=== PATIENT | male | born 2000 | race African-American/Black ===

== ENCOUNTER 2018-06-03 14:04 | Inpatient (IN) | payer BC, MEDICAID, OTHER ==
[~2018-06-03] VITALS: Ht 172.7 cm; Wt 74.2 kg
[~2018-06-03 14:04] MED LIST: HYDR-3498 PO
[2018-06-03 16:39] VITALS: PULSE 77
[2018-06-03 16:41] VITALS: Ht 172.7 cm; Wt 74.2 kg
[2018-06-03 16:45] VITALS: BP 133/69; PULSE 71; RESP 20
[2018-06-03] MEDS ORDERED: ALBUTEROL/IPRATROPIUM (NEB) 3 ML AMP HHN PRN (18:00)
[2018-06-03] MEDS ORDERED: NACL 0.9% 3 ML SYG IV SCH (18:00)
[2018-06-03] MEDS ORDERED: LORAZEPAM 2 MG INJ IV PRN (18:00)
[2018-06-03] MEDS ORDERED: MAGNESIUM HYDROXIDE 30ML CUP PO PRN (18:00)
[2018-06-03] MEDS ORDERED: DOCUSATE SODIUM 100 MG CAP PO PRN (18:00)
[2018-06-03] MEDS ORDERED: ACETAMINOPHEN 325 MG TAB PO PRN (18:00)
[2018-06-03] MEDS ORDERED: ONDANSETRON 4 MG INJ IV PRN (18:00)
[2018-06-03] MEDS ORDERED: hydrALAzine 20 MG INJ IV PRN (18:00)
[2018-06-03] MEDS ORDERED: NITROGLYCERIN (SL) 0.4 MG TAB SL PRN (18:00)
[2018-06-03] MEDS: SOD CHLORIDE 0.9% 1,000 ML IV SCH (18:27)
[2018-06-03] MEDS: PIPER-TAZO 3.375 GM IV (PMX) 100 ML IVPB SCH (18:28)
--- NOTE | 2018-06-03 20:08 | HP ---
DATE OF ADMISSION: 06/03/2018 IDENTIFICATION: This is a 17-year-old male. CHIEF COMPLAINT: Seizure activity after smoking weed, pneumonia. HISTORY OF PRESENT ILLNESS: A 17-year-old male transferred from [facility] earlier today. He was wi th his friends smoking weed through a bong. He says he got up and felt dizzy and lightheaded and bel ieves he passed out. The next thing he remembered was he was in the back of an ambulance. Per recor ds, apparently he was shaking and had what looks like possible seizure activity lasting 30 to 40 seco nds. He did bite his tongue. No bowel or bladder incontinence. No prior history of any seizures be fore. He was also complaining of shortness of breath, cough when he arrived to the outside hospital ER. He had a CT chest performed that showed bilateral infiltrates signs of pneumonia. He also had s ome mild hemoptysis as well. He was given antibiotics and IV fluids there. He was also hypoxic. O2 sat in the 93% to 94% range on 2 to 4 liters nasal cannula. He was transferred over here due to ins urance purposes. PAST MEDICAL HISTORY: As stated above. ALLERGIES: NO KNOWN DRUG ALLERGIES. MEDICATIONS: None on file. PAST SURGICAL HISTORY: He has had left knee surgery x2 in the past. SOCIAL HISTORY: Smokes weed 4 to 5 times a week for the last 3 years. Denies any other cigarette sm oking history or any other drug use and denies any alcohol use. PHYSICAL EXAMINATION: VITAL SIGNS: T-max 97.8, pulse 93, respirations 20, blood pressure 151/88, satting at 92% on 2 liter s nasal cannula. GENERAL: The patient is lying in bed, family members at the bedside. He is more awake and alert. HEENT: Pupils equal, round, reactive to light. There is redness noted in the conjunctiva bilateral eyes, on the lateral side. The conjunctiva otherwise reactive. NECK: Supple, no thyromegaly. LUNGS: Slightly distant breath sounds bilaterally, no wheezes. CARDIOVASCULAR: S1, S2 heard. No rubs or gallops. ABDOMEN: Soft, nontender, nondistended. Normal bowel sounds. No rebound or guarding. MUSCULOSKELETAL: No lower extremity edema bilaterally. NEUROLOGIC: No focal deficits. LABORATORIES: Blood alcohol level was normal. WBC 16.8, hematocrit is 50.4, unknown hemoglobin, unknown platelet count. Sodium is 135, chloride 95 , CO2 of 12, glucose 231, creatinine 1.34. Again, his CT chest at the outside hospital showed patchy bilateral infiltrates, left lower and lingula, right upper lobe, superior segment of the right lower lobe as well. ASSESSMENT AND PLAN: 1. A 17-year-old male with seizure activity after smoking marijuana earlier today along with bilater al pneumonias. 2. Seizure activity. Again, apparently occurred after using weed earlier today. No prior history o f any seizures. He did have tongue biting. He is also having hemoptysis which may be related to his pneumonia. In any event, the patient do neuro checks every 4 hours. Ativan 1 mg q.1 hour p.r.n. se izure activity. We will add Keppra IV. Get neurology consult. Order EEG. Follow up TSH, A1c, lipi d panel. 3. Bilateral pneumonia. Continue oxygen supplementation. Continue broad spectrum antibiotics. Fol low up final culture results. Tylenol p.r.n. pain and fevers. Low dose IV fluids. 4. History of weed use. Monitor for signs of withdrawal. Wool Carder on smoking cessation. Dictated By: KARINA GALLEGOS Conf#: [id number] DID#: [id number]
[2018-06-03 20:22] VITALS: PULSE 69
[2018-06-03] MEDS ORDERED: HEPARIN 5,000 UNIT/1 ML VIAL SC SCH (21:00)
[2018-06-03] MEDS: LEVETIRACETAM 1000 MG (PMX) 100 ML IVPB SCH (21:16)
[2018-06-03] MEDS: morphine 2 MG INJ IV PRN (21:16)
[2018-06-03 22:05] VITALS: BP 122/67; PULSE 69; RESP 18
[2018-06-04] VITALS (13 sets, daily range): BP systolic 112–129; BP diastolic 55–71; PULSE 58–85; RESP 18–20
[2018-06-04] MEDS: PIPER-TAZO 3.375 GM IV (PMX) 100 ML IVPB SCH ×5 (00:17→23:18)
[2018-06-04] MEDS: SOD CHLORIDE 0.9% 1,000 ML IV SCH ×4 (03:51→23:19)
[2018-06-04] MEDS: PANTOPRAZOLE (EC) 40 MG TAB PO SCH (05:46)
[2018-06-04] MEDS: LEVETIRACETAM 1000 MG (PMX) 100 ML IVPB SCH (09:46)
--- NOTE | 2018-06-04 11:12 | CONS ---
Assessment/Plan Assessment/Plan Hospital Course 17 M c/ reported Hx of migraines and frequent marijuana use, who presents following a witnessed seizure...his first of life.. It is possible that he suffered head trauma in the midst of a syncopal episode, which may have provoked a seizure.. He had severe tongue biting during the episode, which likely accounts for his presumed aspiration pneumonia.. He is, thus, likely to expectorate blood in the coming days... OSH Head CT is reportedly unremarkable. Mag, Phos, Ca, Na, Gluc wnl... P: Add MRI brain w/ and w/o contrast for further characterization Await EEG to evaluate for epileptiform activity Hold Hasmukh for now, pending the above Ativan iv prn prolonged seizure or cluster Continued medical management and supportive care per primary Will follow clinically Consultation Date/Type/Reason Admit Date/Time Jun 03, 2018 at 16:27 Type of Consult Neurology Reason for Consultation seizure Requesting Provider: KARINA POTTS Date/Time of Note DATE: 06/04/18 TIME: 11:03 Hx of Present Illness 17 M w/ possible migraines, who presents for evaluation following a witnessed seizure...his reported first of life.. He was smoking marijuana, when he got up quickly to spit.. He noted feeling dizzy....then passed out. Bystanders heard a thump....then located him to find him generally convulsing...which prompted his presentation.. No Hx of febrile seizures, meningitis, or prior significant head trauma. No fam Hx of epilepsy.. No use of amphetamines or recent cessation or ETOH or benzos.. Notes chest pain now...but is without acute neurologic Sx currently.. 12 PT ROS ow neg Exam/Review of Systems Exam Vitals Vital Signs Date Temp Pulse Resp B/P (MAP) Pulse Ox O2 O2 Flow FiO2 Time Delivery Rate 06/04/18 72 08:20 06/04/18 98.2 20 115/67 99 08:18 (83) 06/04/18 Room Air 05:49 06/04/18 2.0 03:41 Intake and Output 06/03/18 06/03/18 06/04/18 1515:00 23:00 07:00 IntakeIntake Total 350 ml 1650 ml BalanceBalance 350 ml 1650 ml Exam PE: Gen Appearance: No Apparent Distress HEENT: Normocephalic Cardiovascular: Regular rate Lungs: Clear bilaterally Abdomen: Soft Extremities: Dry NE: The patient was alert and oriented, able to spell WORLD backwards, and able to recall all three words after a five minute delay. Language was normal. Fund of knowledge was normal. Pupils were equal and reactive to light. There was no afferent pupillary defect. Visual wright were normal. Funduscopic examination showed sharp disc margins and spontaneous venous pulsations. Extra-ocular movements were full. Ptosis was absent. There was no nystagmus. Facial sensation was normal. Face was symmetric with normal strength. Hearing was intact. Palate movements were normal. Neck strength was normal. There was normal tongue bulk and speed of movement. Tone was normal. Muscle bulk was normal. I did not see fasciculations. Arms and legs were strong. Vibration sensation was normal. Temperature and pinprick sensation was normal. Rapid alternating movements were normal. There was no dysmetria. There was no intention tremor. Gait was deferred due to bedrest. Arm and leg reflexes were 2+ and symmetric. Oleary's sign was absent. Plantar responses were flexor. Results Result Diagram: 06/04/18 1019 06/04/18 1019 Results 24hrs Laboratory Tests Test 06/03/18 18:05 06/04/18 10:19 Free Thyroxine 0.98 White Blood Count 10.8 Red Blood Count 4.30 L Hemoglobin 12.9 L Hematocrit 38.9 L Mean Corpuscular Volume 90.5 Mean Corpuscular Hemoglobin 30.0 Mean Corpuscular Hemoglobin Concent 33.2 Red Cell Distribution Width 13.3 Platelet Count 185 Mean Platelet Volume 10.8 H Immature Granulocytes % 0.400 Neutrophils % 73.0 Lymphocytes % 16.1 L Monocytes % 9.3 Eosinophils % 0.9 Basophils % 0.3 Nucleated Red Blood Cells % 0.0 Immature Granulocytes # 0.040 H Neutrophils # 7.9 H Lymphocytes # 1.7 Monocytes # 1.0 H Eosinophils # 0.1 Basophils # 0.0 Nucleated Red Blood Cells # 0.0 Sodium Level 141 Potassium Level 4.2 Chloride Level 111 H Carbon Dioxide Level 23 Anion Gap 7 Blood Urea Nitrogen 11 Creatinine 1.41 H Est Glomerular Filtrat Rate mL/min > 60 Glucose Level 84 Hemoglobin A1c 5.4 Calcium Level 9.1 Phosphorus Level 2.9 Magnesium Level 2.3 Triglycerides Level 89 Cholesterol Level 119 LDL Cholesterol, Calculated 66 HDL Cholesterol 35 Cholesterol/HDL Ratio 3.4 Thyroid Stimulating Hormone (TSH) Pending Medications Medication Current Medications IV Flush (NS 3 ml) 3 ml PER PROTOCOL IV ; Start 06/03/18 at 18:00 Ondansetron HCl (Zofran Inj) 4 mg Q6H PRN IV NAUSEA/VOMITING; Start 06/03/18 at 18:00 Acetaminophen (Tylenol Tab) 650 mg Q6H PRN PO .PAIN 1-3 OR TEMP; Start 06/03/18 at 18:00 Acetaminophen/ Hydrocodone Bitart ([place] (5/325)) 1 tab Q6H PRN PO .MOD PAIN 4- 6; Start 06/03/18 at 18:00 Morphine Sulfate (morphine) 2 mg Q4H PRN IV .SEVERE PAIN 7-10 Last administered on 06/03/18at 21:16; Admin Dose 2 MG; Start 06/03/18 at 18:00 Docusate Sodium (Colace) 100 mg Q12H PRN PO .CONSTIPATION; Start 06/03/18 at 18:00 Magnesium Hydroxide (Milk Of Mag) 30 ml DAILY PRN PO .CONSTIPATION; Start 06/03/18 at 18:00 Pantoprazole (Protonix Tab) 40 mg DAILY@06 PO Last administered on 06/04/18at 05:46; Admin Dose 40 MG; Start 06/04/18 at 06:00 Lorazepam (Ativan) 1 mg Q2H PRN IV SEIZURES; Start 06/03/18 at 18:00 Sodium Chloride 1,000 ml @ 100 mls/hr Q10H IV Last administered on 06/04/18at 07:06; Admin Dose 100 MLS/HR; Start 06/03/18 at 17:51 Albuterol/ Ipratropium (Duoneb) 3 ml Q4H RESP THERAPY PRN HHN SHORTNESS OF BREATH; Start 06/03/18 at 18:00 Piperacillin Sod/ Tazobactam Sod 100 ml @ 200 mls/hr Q6 IVPB Last administered on 06/04/18at 05:46; Admin Dose 200 MLS/HR; Start 06/03/18 at 18:00 Hydralazine HCl (Apresoline) 10 mg Q6H PRN IV ELEVATED BLOOD PRESSURE; Start 06/03/18 at 18:00 Clonidine (Catapres) 0.1 mg Q6H PRN PO ELEVATED BLOOD PRESSURE; Start 06/03/18 at 18:00 Nitroglycerin (Nitroglycerin (Sl Tab) 0.4 Mg) 1 tab Q5M PRN SL ANGINA; Start 06/03/18 at 18:00 Levetiracetam 100 ml @ 400 mls/hr Q12 IVPB Last administered on 06/04/18at 09:46; Admin Dose 400 MLS/HR; Start 06/03/18 at 21:00 Past Medical History reviewed Home Meds Reported Medications Hydrocodone Bit-Acetaminophen* ([place]*) 5-325 Mg Tab, 1 TAB PO Q4H PRN for PAIN, TAB 04/09/15 Medications Current Medications IV Flush (NS 3 ml) 3 ml PER PROTOCOL IV ; Start 06/03/18 at 18:00 Ondansetron HCl (Zofran Inj) 4 mg Q6H PRN IV NAUSEA/VOMITING; Start 06/03/18 at 18:00 Acetaminophen (Tylenol Tab) 650 mg Q6H PRN PO .PAIN 1-3 OR TEMP; Start 06/03/18 at 18:00 Acetaminophen/ Hydrocodone Bitart ([place] (5/325)) 1 tab Q6H PRN PO .MOD PAIN 4- 6; Start 06/03/18 at 18:00 Morphine Sulfate (morphine) 2 mg Q4H PRN IV .SEVERE PAIN 7-10 Last administered on 06/03/18at 21:16; Admin Dose 2 MG; Start 06/03/18 at 18:00 Docusate Sodium (Colace) 100 mg Q12H PRN PO .CONSTIPATION; Start 06/03/18 at 18:00 Magnesium Hydroxide (Milk Of Mag) 30 ml DAILY PRN PO .CONSTIPATION; Start 06/03/18 at 18:00 Pantoprazole (Protonix Tab) 40 mg DAILY@06 PO Last administered on 06/04/18at 05:46; Admin Dose 40 MG; Start 06/04/18 at 06:00 Lorazepam (Ativan) 1 mg Q2H PRN IV SEIZURES; Start 06/03/18 at 18:00 Sodium Chloride 1,000 ml @ 100 mls/hr Q10H IV Last administered on 06/04/18at 07:06; Admin Dose 100 MLS/HR; Start 06/03/18 at 17:51 Albuterol/ Ipratropium (Duoneb) 3 ml Q4H RESP THERAPY PRN HHN SHORTNESS OF BREATH; Start 06/03/18 at 18:00 Piperacillin Sod/ Tazobactam Sod 100 ml @ 200 mls/hr Q6 IVPB Last administered on 06/04/18at 05:46; Admin Dose 200 MLS/HR; Start 06/03/18 at 18:00 Hydralazine HCl (Apresoline) 10 mg Q6H PRN IV ELEVATED BLOOD PRESSURE; Start 06/03/18 at 18:00 Clonidine (Catapres) 0.1 mg Q6H PRN PO ELEVATED BLOOD PRESSURE; Start 06/03/18 at 18:00 Nitroglycerin (Nitroglycerin (Sl Tab) 0.4 Mg) 1 tab Q5M PRN SL ANGINA; Start 06/03/18 at 18:00 Levetiracetam 100 ml @ 400 mls/hr Q12 IVPB Last administered on 06/04/18at 09:46; Admin Dose 400 MLS/HR; Start 06/03/18 at 21:00 Allergies: Coded Allergies: No Known Allergy (Unverified , 04/08/15) Past Surgical History reviewed Social History Smoking Status: Current every day smoker EDSON KLINE Jun 04, 2018 11:12
[2018-06-04] MEDS: morphine 2 MG INJ IV PRN ×2 (11:47→21:17)
--- NOTE | 2018-06-04 11:52 | PN ---
Date/Time of Note Date/Time of Note DATE: 06/04/18 TIME: 11:48 Assessment/Plan VTE Prophylaxis Risk score (from Nsg)>0 risk: 1 SCD applied (from Nsg): Yes Pharmacological prophylaxis: other Assessment/Plan Hospital Course S: Seen by neurology team earlier today. No seizure activity overnight, awaiting further brain imaging studies. O: VS - see below PHYSICAL EXAMINATION: GENERAL: lying in bed, NAD HEENT: Pupils equal, round, reactive to light. There is redness noted in the conjunctiva bilateral eyes, on the lateral sides. The conjunctiva otherwise reactive. NECK: Supple, no thyromegaly. LUNGS: Slightly distant breath sounds bilaterally, no wheezes. CARDIOVASCULAR: S1, S2 heard. No rubs or gallops. ABDOMEN: Soft, nontender, nondistended. Normal bowel sounds. No rebound or guarding. MUSCULOSKELETAL: No lower extremity edema bilaterally. NEUROLOGIC: No focal deficits. ASSESSMENT AND PLAN: 17-year-old male with seizure activity after smoking marijuana along with possible bilateral pneumonia. # Seizure activity. Again, apparently occurred after using weed prior to admission. Neurology team stated patient may have had head trauma which triggered the seizure? No prior history of any seizures. He did have tongue biting. He is also having hemoptysis which may be related to his pneumonia versus the tongue biting? - continue neuro checks every 4 hours. Ativan 1 mg q.1 hour p.r.n. seizure activity. - follow-up MRI brain as ordered by eurology consult, and results of EEG. Follow up TSH, A1c, lipid panel. # Bilateral pneumonia. Less respiratory symptoms, white blood cell count is improving. - Continue oxygen supplementation. - Continue broad spectrum antibiotics. - Follow up final culture results. - Tylenol p.r.n. pain and fevers. - Low dose IV fluids. # History of weed use. - Monitor for signs of withdrawal. - Mva Still Operator on smoking cessation. Result Diagram: 06/04/18 1019 06/04/18 1019 Results 24hrs Laboratory Tests Test 06/03/18 18:05 06/04/18 10:19 Free Thyroxine 0.98 White Blood Count 10.8 Red Blood Count 4.30 L Hemoglobin 12.9 L Hematocrit 38.9 L Mean Corpuscular Volume 90.5 Mean Corpuscular Hemoglobin 30.0 Mean Corpuscular Hemoglobin Concent 33.2 Red Cell Distribution Width 13.3 Platelet Count 185 Mean Platelet Volume 10.8 H Immature Granulocytes % 0.400 Neutrophils % 73.0 Lymphocytes % 16.1 L Monocytes % 9.3 Eosinophils % 0.9 Basophils % 0.3 Nucleated Red Blood Cells % 0.0 Immature Granulocytes # 0.040 H Neutrophils # 7.9 H Lymphocytes # 1.7 Monocytes # 1.0 H Eosinophils # 0.1 Basophils # 0.0 Nucleated Red Blood Cells # 0.0 Sodium Level 141 Potassium Level 4.2 Chloride Level 111 H Carbon Dioxide Level 23 Anion Gap 7 Blood Urea Nitrogen 11 Creatinine 1.41 H Est Glomerular Filtrat Rate mL/min > 60 Glucose Level 84 Hemoglobin A1c 5.4 Calcium Level 9.1 Phosphorus Level 2.9 Magnesium Level 2.3 Triglycerides Level 89 Cholesterol Level 119 LDL Cholesterol, Calculated 66 HDL Cholesterol 35 Cholesterol/HDL Ratio 3.4 Thyroid Stimulating Hormone (TSH) Pending Exam/Review of Systems Exam Vitals Vital Signs Date Temp Pulse Resp B/P (MAP) Pulse Ox O2 O2 Flow FiO2 Time Delivery Rate 06/04/18 72 08:20 06/04/18 98.2 20 115/67 99 08:18 (83) 06/04/18 Room Air 05:49 06/04/18 2.0 03:41 Intake and Output 06/03/18 06/03/18 06/04/18 1515:00 23:00 07:00 IntakeIntake Total 350 ml 1650 ml BalanceBalance 350 ml 1650 ml Results Results 24hrs Laboratory Tests Test 06/03/18 18:05 06/04/18 10:19 Free Thyroxine 0.98 White Blood Count 10.8 Red Blood Count 4.30 L Hemoglobin 12.9 L Hematocrit 38.9 L Mean Corpuscular Volume 90.5 Mean Corpuscular Hemoglobin 30.0 Mean Corpuscular Hemoglobin Concent 33.2 Red Cell Distribution Width 13.3 Platelet Count 185 Mean Platelet Volume 10.8 H Immature Granulocytes % 0.400 Neutrophils % 73.0 Lymphocytes % 16.1 L Monocytes % 9.3 Eosinophils % 0.9 Basophils % 0.3 Nucleated Red Blood Cells % 0.0 Immature Granulocytes # 0.040 H Neutrophils # 7.9 H Lymphocytes # 1.7 Monocytes # 1.0 H Eosinophils # 0.1 Basophils # 0.0 Nucleated Red Blood Cells # 0.0 Sodium Level 141 Potassium Level 4.2 Chloride Level 111 H Carbon Dioxide Level 23 Anion Gap 7 Blood Urea Nitrogen 11 Creatinine 1.41 H Est Glomerular Filtrat Rate mL/min > 60 Glucose Level 84 Hemoglobin A1c 5.4 Calcium Level 9.1 Phosphorus Level 2.9 Magnesium Level 2.3 Triglycerides Level 89 Cholesterol Level 119 LDL Cholesterol, Calculated 66 HDL Cholesterol 35 Cholesterol/HDL Ratio 3.4 Thyroid Stimulating Hormone (TSH) Pending Medications Medication Current Medications IV Flush (NS 3 ml) 3 ml PER PROTOCOL IV ; Start 06/03/18 at 18:00 Ondansetron HCl (Zofran Inj) 4 mg Q6H PRN IV NAUSEA/VOMITING; Start 06/03/18 at 18:00 Acetaminophen (Tylenol Tab) 650 mg Q6H PRN PO .PAIN 1-3 OR TEMP; Start 06/03/18 at 18:00 Acetaminophen/ Hydrocodone Bitart ([place] (5/325)) 1 tab Q6H PRN PO .MOD PAIN 4- 6; Start 06/03/18 at 18:00 Morphine Sulfate (morphine) 2 mg Q4H PRN IV .SEVERE PAIN 7-10 Last administered on 06/03/18at 21:16; Admin Dose 2 MG; Start 06/03/18 at 18:00 Docusate Sodium (Colace) 100 mg Q12H PRN PO .CONSTIPATION; Start 06/03/18 at 18:00 Magnesium Hydroxide (Milk Of Mag) 30 ml DAILY PRN PO .CONSTIPATION; Start 06/03/18 at 18:00 Pantoprazole (Protonix Tab) 40 mg DAILY@06 PO Last administered on 06/04/18at 05:46; Admin Dose 40 MG; Start 06/04/18 at 06:00 Lorazepam (Ativan) 1 mg Q2H PRN IV SEIZURES; Start 06/03/18 at 18:00 Sodium Chloride 1,000 ml @ 100 mls/hr Q10H IV Last administered on 06/04/18at 07:06; Admin Dose 100 MLS/HR; Start 06/03/18 at 17:51 Albuterol/ Ipratropium (Duoneb) 3 ml Q4H RESP THERAPY PRN HHN SHORTNESS OF BR EATH; Start 06/03/18 at 18:00 Piperacillin Sod/ Tazobactam Sod 100 ml @ 200 mls/hr Q6 IVPB Last administered on 06/04/18at 05:46; Admin Dose 200 MLS/HR; Start 06/03/18 at 18:00 Hydralazine HCl (Apresoline) 10 mg Q6H PRN IV ELEVATED BLOOD PRESSURE; Start 06/03/18 at 18:00 Clonidine (Catapres) 0.1 mg Q6H PRN PO ELEVATED BLOOD PRESSURE; Start 06/03/18 at 18:00 Nitroglycerin (Nitroglycerin (Sl Tab) 0.4 Mg) 1 tab Q5M PRN SL ANGINA; Start 06/03/18 at 18:00 Phenol (Chloraseptic Throat Troup) 2 spray Q2H PRN MT SORE THROAT; Start 06/04/18 at 12:00 KARINA POTTS Jun 04, 2018 11:52
[2018-06-04] MEDS ORDERED: PHENOL 1.4% SOLN 180 ML BTL MT PRN (12:00)
[2018-06-04] MEDS: HYDROCODONE/APAP (5/325) TAB PO PRN (16:07)
[2018-06-05] VITALS (9 sets, daily range): BP systolic 109–121; BP diastolic 51–58; PULSE 52–71; RESP 19–20
[2018-06-05] MEDS: PIPER-TAZO 3.375 GM IV (PMX) 100 ML IVPB SCH ×3 (06:39→17:12)
[2018-06-05] MEDS: PANTOPRAZOLE (EC) 40 MG TAB PO SCH (06:39)
--- NOTE | 2018-06-05 06:51 | EEG ---
EEG NOTE Report Details DATE OF TEST: 06/04/18 HISTORY: The patient is a 17-year-old M who presents with seizure, his first of life. This EEG is requested to evaluate for an epileptic disorder. SEDATION: None. CONDITIONS OF RECORDING: This EEG was recorded digitally on the [employer] machine, using the International 10-20 System of electrodes plus anterior temporals and [place]. STATES SAMPLED: Wakefulness and drowsiness. FINDINGS: During wakefulness, there is a 10 Hz posterior dominant rhythm, which attenuates normally with eye opening. There is a normal [id number] frequency-amplitude gradient. The remainder of the awake background is normal. Photic stimulation does not elicit any definite driving responses or epileptiform discharges. Hyperventilation was not performed. The patient became drowsy but did not pass into sleep. No asymmetries, focal abnormalities or epileptiform discharges were seen. IMPRESSION: Normal electroencephalogram during wakefulness and drowsiness. COMMENT: A normal EEG does not of itself rule out an epileptic disorder, especially if sleep is not captured, but may decrease the probability of one depending on clinical context. EDSON KLINE Jun 05, 2018 06:51
[2018-06-05] MEDS: SOD CHLORIDE 0.9% 1,000 ML IV SCH ×2 (10:00→19:51)
[2018-06-05] MEDS: HYDROCODONE/APAP (5/325) TAB PO PRN ×2 (10:48→18:15)
--- NOTE | 2018-06-05 14:18 | CONS ---
Assessment/Plan Assessment/Plan Hospital Course 17 M c/ reported Hx of migraines and frequent marijuana use, who presents following a witnessed seizure...his first of life.. It is possible that he suffered head trauma in the midst of a syncopal episode, which may have provoked a seizure.. He had severe tongue biting during the episode, which likely accounts for his presumed aspiration pneumonia.. He is, thus, likely to expectorate blood in the coming days... MRI brain is unremarkable. EEG is without epileptiform activity. Mag, Phos, Ca, Na, Gluc wnl... P: Cont to hold Keppra. Ativan iv prn prolonged seizure or cluster Continued medical management and supportive care per primary Will follow clinically Consultation Date/Type/Reason Admit Date/Time Jun 03, 2018 at 16:27 Type of Consult Neurology Requesting Provider: KARINA POTTS Date/Time of Note DATE: 06/05/18 TIME: 14:18 24 HR Interval Summary Free Text/Dictation Continues acute care. No seizure events reported. Exam Vital Signs Vitals Vital Signs Date Temp Pulse Resp B/P (MAP) Pulse Ox O2 O2 Flow FiO2 Time Delivery Rate 06/05/18 68 20 98 Nasal 2.0 12:27 Cannula 06/05/18 98.7 109/51 11:30 (70) Intake and Output 06/04/18 06/04/18 06/05/18 1515:00 23:00 07:00 IntakeIntake Total 720 ml 1700 ml BalanceBalance 720 ml 1700 ml Exam PE: Gen Appearance: No Apparent Distress HEENT: Normocephalic Cardiovascular: Regular rate Lungs: Clear bilaterally Abdomen: Soft Extremities: Dry NE: The patient was alert and oriented.. Language was normal. Fund of knowledge was normal. Pupils were equal and reactive to light. There was no afferent pupillary defect. Visual wright were normal. Funduscopic examination was limited. Extra-ocular movements were full. Ptosis was absent. There was no nystagmus. Facial sensation was normal. Face was symmetric with normal strength. Hearing was intact. Palate movements were normal. Neck strength was normal. There was normal tongue bulk and speed of movement. Tone was normal. Muscle bulk was normal. I did not see fasciculations. Arms and legs were strong. Vibration sensation was normal. Temperature and pinprick sensation was normal. Rapid alternating movements were normal. There was no dysmetria. There was no intention tremor. Gait was deferred due to bedrest. Arm and leg reflexes were 2+ and symmetric. Oleary's sign was absent. Plantar responses were flexor. JAMARCUS CAVANAUGH NP Jun 05, 2018 14:18
--- NOTE | 2018-06-05 14:43 | PN ---
Date/Time of Note Date/Time of Note DATE: 06/05/18 TIME: 14:38 Assessment/Plan VTE Prophylaxis Risk score (from [facility])>0 risk: 2 SCD applied (from [facility] [place]): Yes Pharmacological prophylaxis: other Pharm contraindication: low risk/ambulating Assessment/Plan Assessment/Plan 1. Seizure disorder, negative MRI brain and normal EEG, follow up with neurology 2. Aspiration pneumonia, on zosyn, repeat CXR 3. Marijuana use Result Diagram: 06/05/18 1219 06/05/18 1219 Results 24hrs Laboratory Tests Test 06/05/18 12:19 White Blood Count 9.5 Red Blood Count 4.29 L Hemoglobin 12.6 L Hematocrit 38.9 L Mean Corpuscular Volume 90.7 Mean Corpuscular Hemoglobin 29.4 Mean Corpuscular Hemoglobin Concent 32.4 Red Cell Distribution Width 12.9 Platelet Count 179 Mean Platelet Volume 10.3 Immature Granulocytes % 0.300 Neutrophils % 71.0 Lymphocytes % 18.1 Monocytes % 8.2 Eosinophils % 2.1 Basophils % 0.3 Nucleated Red Blood Cells % 0.0 Immature Granulocytes # 0.030 Neutrophils # 6.7 Lymphocytes # 1.7 Monocytes # 0.8 Eosinophils # 0.2 Basophils # 0.0 Nucleated Red Blood Cells # 0.0 Sodium Level 139 Potassium Level 4.4 Chloride Level 106 Carbon Dioxide Level 25 Anion Gap 8 Blood Urea Nitrogen 9 Creatinine 1.20 Est Glomerular Filtrat Rate mL/min > 60 Glucose Level 112 Calcium Level 9.3 Subjective 24 Hr Interval Summary Free Text/Dictation some hemoptysis Exam/Review of Systems Exam Vitals Vital Signs Date Temp Pulse Resp B/P (MAP) Pulse Ox O2 O2 Flow FiO2 Time Delivery Rate 06/05/18 68 20 98 Nasal 2.0 12:27 Cannula 06/05/18 98.7 109/51 11:30 (70) Intake and Output 06/04/18 06/04/18 06/05/18 1515:00 23:00 07:00 IntakeIntake Total 720 ml 1700 ml BalanceBalance 720 ml 1700 ml Constitutional: alert, oriented, well developed Psych: no complaints, nl mood/affect Head: normocephalic, atraumatic Eyes: nl conjunctiva, EOMI, nl lids, nl sclera, PERRL ENMT: nl external ears & nose, nl lips & teeth, nl nasal mucosa & septum Neck: supple, non-tender Respiratory: clear to auscultation, normal air movement; No congested cough, No crackles/rales, No diminished breath sounds, No intercostal retraction, No labored breathing, No respirations, No tactile fremitus, No wheezing, No other Cardiovascular: regular rate and rhythm, nl pulses; No bruits, No diastolic murmur, No edema, No gallop, No irregular rhythm, No jugular venous distention (JVD), No murmurs/extra sounds, No rub, No systolic murmur, No S3, No S4, No other Gastrointestinal: soft, nl liver, spleen, non-tender; No ascites, No bowel sounds, No distended, No firm, No hepatomegaly, No mass, No rebound or guarding, No splenomegaly, No surgical scars, No tender, No other Musculoskeletal: nl extremities to inspection Extremities: normal pulses; No calf tenderness, No cyanosis, No clubbing, No edema, No pitting pedal edema, No palpable cord, No tenderness, No other Neurological: BUSINESS INTELLIGENCE ANALYST II-XII intact, nl mental status, nl speech, nl strength Skin: nl turgor Lymph: nl lymph nodes Results Results 24hrs Laboratory Tests Test 06/05/18 12:19 White Blood Count 9.5 Red Blood Count 4.29 L Hemoglobin 12.6 L Hematocrit 38.9 L Mean Corpuscular Volume 90.7 Mean Corpuscular Hemoglobin 29.4 Mean Corpuscular Hemoglobin Concent 32.4 Red Cell Distribution Width 12.9 Platelet Count 179 Mean Platelet Volume 10.3 Immature Granulocytes % 0.300 Neutrophils % 71.0 Lymphocytes % 18.1 Monocytes % 8.2 Eosinophils % 2.1 Basophils % 0.3 Nucleated Red Blood Cells % 0.0 Immature Granulocytes # 0.030 Neutrophils # 6.7 Lymphocytes # 1.7 Monocytes # 0.8 Eosinophils # 0.2 Basophils # 0.0 Nucleated Red Blood Cells # 0.0 Sodium Level 139 Potassium Level 4.4 Chloride Level 106 Carbon Dioxide Level 25 Anion Gap 8 Blood Urea Nitrogen 9 Creatinine 1.20 Est Glomerular Filtrat Rate mL/min > 60 Glucose Level 112 Calcium Level 9.3 Medications Medication Current Medications IV Flush (NS 3 ml) 3 ml PER PROTOCOL IV ; Start 06/03/18 at 18:00 Ondansetron HCl (Zofran Inj) 4 mg Q6H PRN IV NAUSEA/VOMITING; Start 06/03/18 at 18:00 Acetaminophen (Tylenol Tab) 650 mg Q6H PRN PO .PAIN 1-3 OR TEMP; Start 06/03/18 at 18:00 Acetaminophen/ Hydrocodone Bitart ([place] (5/325)) 1 tab Q6H PRN PO .MOD PAIN 4- 6 Last administered on 06/05/18at 10:48; Admin Dose 1 TAB; Start 06/03/18 at 18:00 Morphine Sulfate (morphine) 2 mg Q4H PRN IV .SEVERE PAIN 7-10 Last administered on 06/04/18 21:17; Admin Dose 2 MG; Start 06/03/18 at 18:00 Docusate Sodium (Colace) 100 mg Q12H PRN PO .CONSTIPATION; Start 06/03/18 at 18:00 Magnesium Hydroxide (Milk Of Mag) 30 ml DAILY PRN PO .CONSTIPATION; Start 06/03/18 at 18:00 Pantoprazole (Protonix Tab) 40 mg DAILY@06 PO Last administered on 06/05/18at 06:39; Admin Dose 40 MG; Start 06/04/18 at 06:00 Lorazepam (Ativan) 1 mg Q2H PRN IV SEIZURES; Start 06/03/18 at 18:00 Sodium Chloride 1,000 ml @ 100 mls/hr Q10H IV Last administered on 06/05/18at 10:00; Admin Dose 100 MLS/HR; Start 06/03/18 at 17:51 Albuterol/ Ipratropium (Duoneb) 3 ml Q4H RESP THERAPY PRN HHN SHORTNESS OF BREATH Last administered on 06/05/18at 12:23; Admin Dose 3 ML; Start 06/03/18 at 18:00 Piperacillin Sod/ Tazobactam Sod 100 ml @ 200 mls/hr Q6 IVPB Last administered on 06/05/18at 11:18; Admin Dose 200 MLS/HR; Start 06/03/18 at 18:00 Hydralazine HCl (Apresoline) 10 mg Q6H PRN IV ELEVATED BLOOD PRESSURE; Start 06/03/18 at 18:00 Clonidine (Catapres) 0.1 mg Q6H PRN PO ELEVATED BLOOD PRESSURE; Start 06/03/18 at 18:00 Nitroglycerin (Nitroglycerin (Sl Tab) 0.4 Mg) 1 tab Q5M PRN SL ANGINA; Start 06/03/18 at 18:00 Phenol (Chloraseptic Throat [place]) 2 spray Q2H PRN MT SORE THROAT Last a dministered on 06/04/18at 13:36; Admin Dose 2 SPRAY; Start 06/04/18 at 12:00 ALYSSA MARTINEZ MD Jun 05, 2018 14:43
[2018-06-06] VITALS (8 sets, daily range): BP systolic 114–136; BP diastolic 57–78; PULSE 51–72; RESP 18
[2018-06-06] MEDS: PIPER-TAZO 3.375 GM IV (PMX) 100 ML IVPB SCH ×4 (00:03→17:35)
[2018-06-06] MEDS: PANTOPRAZOLE (EC) 40 MG TAB PO SCH (06:00)
[2018-06-06] MEDS: SOD CHLORIDE 0.9% 1,000 ML IV SCH ×2 (06:37→15:32)
[2018-06-06] MEDS: HYDROCODONE/APAP (5/325) TAB PO PRN ×2 (11:17→18:18)
--- NOTE | 2018-06-06 14:47 | CONS ---
Assessment/Plan Assessment/Plan Hospital Course 17 M c/ reported Hx of migraines and frequent marijuana use, who presents following a witnessed seizure...his first of life.. It is possible that he suffered head trauma in the midst of a syncopal episode, which may have provoked a seizure.. He had severe tongue biting during the episode, which likely accounts for his presumed aspiration pneumonia.. He is, thus, likely to expectorate blood in the coming days... MRI brain is unremarkable. EEG is without epileptiform activity. Mag, Phos, Ca, Na, Gluc wnl... P: Cont to hold Keppra. Ativan iv prn prolonged seizure or cluster Continued medical management and supportive care per primary Will follow clinically Consultation Date/Type/Reason Admit Date/Time Jun 03, 2018 at 16:27 Type of Consult Neurology Requesting Provider: KARINA POTTS Date/Time of Note DATE: 06/06/18 TIME: 14:47 24 HR Interval Summary Free Text/Dictation Continues acute care. Exam Vital Signs Vitals Vital Signs Date Temp Pulse Resp B/P (MAP) Pulse Ox O2 O2 Flow FiO2 Time Delivery Rate 06/06/18 2.0 13:22 06/06/18 62 12:11 06/06/18 97.9 18 123/71 100 11:22 (88) 06/05/18 Room Air 15:49 Intake and Output 06/05/18 06/05/18 06/06/18 1515:00 23:00 07:00 IntakeIntake Total 100 ml 1400 ml 700 ml BalanceBalance 100 ml 1400 ml 700 ml Exam PE: Gen Appearance: No Apparent Distress HEENT: Normocephalic Cardiovascular: Regular rate Lungs: Clear bilaterally Abdomen: Soft Extremities: Dry NE: The patient was alert and oriented.. Language was normal. Fund of knowledge was normal. Pupils were equal and reactive to light. There was no afferent pupillary defect. Visual wright were normal. Funduscopic examination was limited. Extra-ocular movements were full. Ptosis was absent. There was no nystagmus. Facial sensation was normal. Face was symmetric with normal strength. Hearing was intact. Palate movements were normal. Neck strength was normal. There was normal tongue bulk and speed of movement. Tone was normal. Muscle bulk was normal. I did not see fasciculations. Arms and legs were strong. Vibration sensation was normal. Temperature and pinprick sensation was normal. Rapid alternating movements were normal. There was no dysmetria. There was no intention tremor. Gait was deferred due to bedrest. Arm and leg reflexes were 2+ and symmetric. Oleary's sign was absent. Plantar responses were flexor. JAMARCUS CAVANAUGH NP Jun 06, 2018 14:47
--- NOTE | 2018-06-06 14:49 | PN ---
Date/Time of Note Date/Time of Note DATE: 06/06/18 TIME: 14:47 Assessment/Plan VTE Prophylaxis Risk score (from [facility] [place])>0 risk: 1 SCD applied (from [facility] [place]): Yes Pharmacological prophylaxis: other Pharm contraindication: other Lines/Catheters IV Catheter Type (from [facility]): Peripheral IV Assessment/Plan Assessment/Plan 1. Seizure disorder, negative MRI brain and normal EEG, no treatment needed follow up with neurology 2. Aspiration pneumonia/pneumonitis, on zosyn, repeat CXR 3. Marijuana use Result Diagram: 06/06/18 1411 06/05/18 1219 Results 24hrs Laboratory Tests Test 06/06/18 14:11 White Blood Count 8.0 Red Blood Count 4.25 L Hemoglobin 12.8 L Hematocrit 38.2 L Mean Corpuscular Volume 89.9 Mean Corpuscular Hemoglobin 30.1 Mean Corpuscular Hemoglobin Concent 33.5 Red Cell Distribution Width 12.7 Platelet Count 202 Mean Platelet Volume 10.6 H Immature Granulocytes % 0.400 Neutrophils % 66.7 Lymphocytes % 20.7 Monocytes % 9.5 Eosinophils % 2.3 Basophils % 0.4 Nucleated Red Blood Cells % 0.0 Immature Granulocytes # 0.030 Neutrophils # 5.3 Lymphocytes # 1.7 Monocytes # 0.8 Eosinophils # 0.2 Basophils # 0.0 Nucleated Red Blood Cells # 0.0 Subjective 24 Hr Interval Summary Free Text/Dictation cough with brownish sputum dizzy on standing Exam/Review of Systems Exam Vitals Vital Signs Date Temp Pulse Resp B/P (MAP) Pulse Ox O2 O2 Flow FiO2 Time Delivery Rate 06/06/18 2.0 13:22 06/06/18 62 12:11 06/06/18 97.9 18 123/71 100 11:22 (88) 06/05/18 Room Air 15:49 Intake and Output 06/05/18 06/05/18 06/06/18 1515:00 23:00 07:00 IntakeIntake Total 100 ml 1400 ml 700 ml BalanceBalance 100 ml 1400 ml 700 ml Constitutional: alert, oriented, well developed Head: normocephalic, atraumatic Eyes: nl conjunctiva, EOMI, nl lids, PERRL ENMT: nl external ears & nose, nl lips & teeth, nl nasal mucosa & septum Neck: supple, non-tender Respiratory: clear to auscultation, normal air movement; No congested cough, No crackles/rales, No diminished breath sounds, No intercostal retraction, No labored breathing, No respirations, No tactile frem itus, No wheezing, No other Cardiovascular: regular rate and rhythm, nl pulses; No bruits, No diastolic murmur, No edema, No gallop, No irregular rhythm, No jugular venous distention (JVD), No murmurs/extra sounds, No rub, No systolic murmur, No S3, No S4, No other Gastrointestinal: soft, nl liver, spleen, non-tender; No ascites, No bowel sounds, No distended, No firm, No hepatomegaly, No mass, No rebound or guarding, No splenomegaly, No surgical scars, No tender, No other Musculoskeletal: nl extremities to inspection Extremities: normal pulses; No calf tenderness, No cyanosis, No clubbing, No edema, No pitting pedal edema, No palpable cord, No tenderness, No other Neurological: TOOL SPECIALIST II-XII intact, nl mental status, nl speech, nl strength Results Results 24hrs Laboratory Tests Test 06/06/18 14:11 White Blood Count 8.0 Red Blood Count 4.25 L Hemoglobin 12.8 L Hematocrit 38.2 L Mean Corpuscular Volume 89.9 Mean Corpuscular Hemoglobin 30.1 Mean Corpuscular Hemoglobin Concent 33.5 Red Cell Distribution Width 12.7 Platelet Count 202 Mean Platelet Volume 10.6 H Immature Granulocytes % 0.400 Neutrophils % 66.7 Lymphocytes % 20.7 Monocytes % 9.5 Eosinophils % 2.3 Basophils % 0.4 Nucleated Red Blood Cells % 0.0 Immature Granulocytes # 0.030 Neutrophils # 5.3 Lymphocytes # 1.7 Monocytes # 0.8 Eosinophils # 0.2 Basophils # 0.0 Nucleated Red Blood Cells # 0.0 Medications Medication Current Medications IV Flush (NS 3 ml) 3 ml PER PROTOCOL IV ; Start 06/03/18 at 18:00 Ondansetron HCl (Zofran Inj) 4 mg Q6H PRN IV NAUSEA/VOMITING; Start 06/03/18 at 18:00 Acetaminophen (Tylenol Tab) 650 mg Q6H PRN PO .PAIN 1-3 OR TEMP; Start 06/03/18 at 18:00 Acetaminophen/ Hydrocodone Bitart ([place] (5/325)) 1 tab Q6H PRN PO .MOD PAIN 4- 6 Last administered on 06/06/18 11:17; Admin Dose 1 TAB; Start 06/03/18 at 18:00 Morphine Sulfate (morphine) 2 mg Q4H PRN IV .SEVERE PAIN 7-10 Last administered on 06/04/18 21:17; Admin Dose 2 MG; Start 06/03/18 at 18:00 Docusate Sodium (Colace) 100 mg Q12H PRN PO .CONSTIPATION; Start 06/03/18 at 18:00 Magnesium Hydroxide (Milk Of Mag) 30 ml DAILY PRN PO .CONSTIPATION; Start 06/03/18 at 18:00 Pantoprazole (Protonix Tab) 40 mg DAILY@06 PO Last administered on 06/05/18 06:39; Admin Dose 40 MG; Start 06/04/18 at 06:00 Lorazepam (Ativan) 1 mg Q2H PRN IV SEIZURES; Start 06/03/18 at 18:00 Sodium Chloride 1,000 ml @ 100 mls/hr Q10H IV Last administered on 06/06/18 06:37; Admin Dose 100 MLS/HR; Start 06/03/18 at 17:51 Albuterol/ Ipratropium (Duoneb) 3 ml Q4H RESP THERAPY PRN HHN SHORTNESS OF BREATH Last administered on 06/05/18 12:23; Admin Dose 3 ML; Start 06/03/18 at 18:00 Piperacillin Sod/ Tazobactam Sod 100 ml @ 200 mls/hr Q6 IVPB Last administered on 06/06/18 11:16; Admin Dose 200 MLS/HR; Start 06/03/18 at 18:00 Hydralazine HCl (Apresoline) 10 mg Q6H PRN IV ELEVATED BLOOD PRESSURE; Start 06/03/18 at 18:00 Clonidine (Catapres) 0.1 mg Q6H PRN PO ELEVATED BLOOD PRESSURE; Start 06/03/18 at 18:00 Nitroglycerin (Nitroglycerin (Sl Tab) 0.4 Mg) 1 tab Q5M PRN SL ANGINA; Start 06/03/18 at 18:00 Phenol (Chloraseptic Throat [place]) 2 spray Q2H PRN MT SORE THROAT Last administered on 06/04/18 13:36; Admin Dose 2 SPRAY; Start 06/04/18 at 12:00 ALYSSA MARTINEZ MD Jun 06, 2018 14:49
[2018-06-07] VITALS: BP 119/61; PULSE 56; PULSE 57; RESP 18
[2018-06-07] MEDS: PIPER-TAZO 3.375 GM IV (PMX) 100 ML IVPB SCH ×3 (00:12→11:45)
[2018-06-07 04:00] VITALS: PULSE 49
[2018-06-07] MEDS: PANTOPRAZOLE (EC) 40 MG TAB PO SCH (07:58)
[2018-06-07 08:24] VITALS: PULSE 51
[2018-06-07 11:12] VITALS: BP 130/58; PULSE 58; RESP 19
[2018-06-07 12:19] VITALS: PULSE 51
[2018-06-07] MEDS ORDERED: AMOX1TAB9 PO (13:49)
--- NOTE | 2018-06-07 13:55 | DS ---
Date/Time of Note Date/Time of Note DATE: 06/07/18 TIME: 13:50 Discharge Summary Admission/Discharge Info Admit Date/Time Jun 03, 2018 at 16:27 Discharge Date/Time Discharge Diagnosis 1. Seizure disorder, negative MRI brain and normal EEG, no treatment needed, follow up with neurology 2. Aspiration pneumonia/pneumonitis, stable, follow up with PCP 3. Marijuana use, advise to quit 4. Conjunctival hemorrhage, bilateral, stable Patient Condition: Stable Hospital Course A 17-year-old male transferred from [facility] earlier today. He was with his friends smoking weed through a bong. He says he got up and felt dizzy and lightheaded and believes he passed out. The next thing he remembered was he was in the back of an ambulance. Per records, apparently he was shaking and had what looks like possible seizure activity lasting 30 to 40 seconds. He did bite his tongue. No bowel or bladder incontinence. No prior history of any seizures before. He was also complaining of shortness of breath, cough when he arrived to the outside hospital ER. He had a CT chest performed that showed bilateral infiltrates signs of pneumonia. He also had some mild hemoptysis as well. He was given antibiotics and IV fluids there. He was also hypoxic. O2 sat in the 93% to 94% range on 2 to 4 liters nasal cannula. He was transferred over here due to insurance purposes. Patient is seen by neurology service, no treatment is needed. No seizure activity after the admission. He will follow up with neurology outpatient. Patient coughs with yellow sputum. CXR no pulmonary infiltrates. I will continue him with two more days of augmentin. He has bilateral conjunctival hemorrhage, stable. No vision change.No treatment needed. Home Meds Active Scripts Amoxicillin/Potassium Clav (Amox-Clav 500-125 mg Tablet) 500-125 mg Tab, 1 TAB PO BID for 2 Days, TAB Prov:ALYSSA MARTINEZ MD 06/07/18 Discontinued Reported Medications Hydrocodone Bit-Acetaminophen* (Seltzer*) 5-325 Mg Tab, 1 TAB PO Q4H PRN for PAIN, TAB 04/09/15 Follow-up Plan PCP and neurology in one week Primary Care Provider Not On Staff Doctor Pending Labs Laboratory Tests Test 06/06/18 14:11 White Blood Count 8.0 10^3/ul (4.8-10.8) Red Blood Count 4.25 10^6/ul (4.70-6.10) Hemoglobin 12.8 g/dl (14.0-18.0) Hematocrit 38.2 % (42.0-52.0) Mean Corpuscular Volume 89.9 fl (72.0-104.0) Mean Corpuscular Hemoglobin 30.1 pg (29.0-33.0) Mean Corpuscular Hemoglobin Concent 33.5 g/dl (32.0-37.0) Red Cell Distribution Width 12.7 % (11.5-14.5) Platelet Count 202 10^3/UL (140-415) Mean Platelet Volume 10.6 fl (7.4-10.4) Immature Granulocytes % 0.400 % (0.001-0.429) Neutrophils % 66.7 % (30.0-74.0) Lymphocytes % 20.7 % (18.0-55.0) Monocytes % 9.5 % (0.0-13.0) Eosinophils % 2.3 % (0.0-7.0) Basophils % 0.4 % (0.0-2.0) Nucleated Red Blood Cells % 0.0 /100WBC (0.0-0.0) Immature Granulocytes # 0.030 10^3/ul (0.0-0.031) Neutrophils # 5.3 10^3/ul (1.6-7.5) Lymphocytes # 1.7 10^3/ul (0.8-2.9) Monocytes # 0.8 10^3/ul (0.3-0.9) Eosinophils # 0.2 10^3/ul (0.0-0.5) Basophils # 0.0 10^3/ul (0.0-0.1) Nucleated Red Blood Cells # 0.0 10^3/ul (0.0-0.0) Sodium Level 140 mmol/L (135-144) Potassium Level 4.3 mmol/L (3.5-5.1) Chloride Level 106 mmol/L (97-110) Carbon Dioxide Level 27 mmol/L (21-31) Anion Gap 7 (5-13) Blood Urea Nitrogen 9 mg/dl (7-20) Creatinine 1.28 mg/dl (0.61-1.24) Est Glomerular Filtrat Rate mL/min > 60 mL/min (>60) Glucose Level 83 mg/dl (70-220) Calcium Level 9.6 mg/dl (8.4-10.2) ALYSSA MARTINEZ MD Jun 07, 2018 13:55
--- NOTE | 2018-06-07 14:11 | CONS ---
Assessment/Plan Assessment/Plan Hospital Course 17 M c/ reported Hx of migraines and frequent marijuana use, who presents following a witnessed seizure...his first of life.. It is possible that he suffered head trauma in the midst of a syncopal episode, which may have provoked a seizure.. He had severe tongue biting during the episode, which likely accounts for his presumed aspiration pneumonia.. He is, thus, likely to expectorate blood in the coming days... MRI brain is unremarkable. EEG is without epileptiform activity. Mag, Phos, Ca, Na, Gluc wnl... P: Cont to hold Keppra. Ativan iv prn prolonged seizure or cluster Continued medical management and supportive care per primary Will follow clinically Consultation Date/Type/Reason Admit Date/Time Jun 03, 2018 at 16:27 Type of Consult Neurology Requesting Provider: KARINA POTTS Date/Time of Note DATE: 06/07/18 TIME: 14:11 24 HR Interval Summary Free Text/Dictation Continues acute care. No seizure episodes reported. Exam Vital Signs Vitals Vital Signs Date Temp Pulse Resp B/P (MAP) Pulse Ox O2 O2 Flow FiO2 Time Delivery Rate 06/07/18 51 12:19 06/07/18 97.6 19 130/58 98 11:12 (82) 06/07/18 2.0 03:24 06/05/18 Room Air 15:49 Intake and Output 06/06/18 06/06/18 06/07/18 1515:00 23:00 07:00 IntakeIntake Total 100 ml 1300 ml 500 ml BalanceBalance 100 ml 1300 ml 500 ml Exam PE: Gen Appearance: No Apparent Distress HEENT: Normocephalic Cardiovascular: Regular rate Lungs: Clear bilaterally Abdomen: Soft Extremities: Dry NE: The patient was alert and oriented.. Language was normal. Fund of knowledge was normal. Pupils were equal and reactive to light. There was no afferent pupillary defect. Visual wright were normal. Funduscopic examination was limited. Extra-ocular movements were full. Ptosis was absent. There was no nystagmus. Facial sensation was normal. Face was symmetric with normal strength. Hearing was intact. Palate movements were normal. Neck strength was normal. There was normal tongue bulk and speed of movement. Tone was normal. Muscle bulk was normal. I did not see fasciculations. Arms and legs were strong. Vibration sensation was normal. Temperature and pinprick sensation was normal. Rapid alternating movements were normal. There was no dysmetria. There was no intention tremor. Gait was deferred due to bedrest. Arm and leg reflexes were 2+ and symmetric. Oleary's sign was absent. Plantar responses were flexor. JAMARCUS CAVANAUGH NP Jun 07, 2018 14:11
== END 2018-06-07 14:44 | disposition home or self-care (01) | DRG 100 ==
LOC: TEL 16:27
PROVIDERS: ADMIT Hospitalist; ATTEND Internal Medicine
DX: G40.909 Epilepsy, unspecified, not intractable, without status epilepticus (principal); J69.0 Pneumonitis due to inhalation of food and vomit; F12.90 Cannabis use, unspecified, uncomplicated; H11.33 Conjunctival hemorrhage, bilateral; F17.290 Nicotine dependence, other tobacco product, uncomplicated
CPT/HCPCS: 70553; 71045; 80048; 80061; 83036; 83735; 84100; 84439; 84443; 85025; 94664; 95819; 97161; J1953; J2270; J2543; J7030